=== PATIENT | female | born 1990 | race Two or more races ===

== ENCOUNTER → 2016-10-23 | Outpatient (REF) | payer OTHER | LOC: M SFHCLERA 13:02 | PROVIDERS: ATTEND Nurse Practitioner Family | DX: R50.9 Fever, unspecified (principal); R30.0 Dysuria ==

== ENCOUNTER → 2017-06-15 | Outpatient (CLI) | payer OTHER ==
[2017-06-18 00:07] LABS: MUMPS VIRUS IgM ANTIBODY <0.80 AU (0.00-0.79)
== END ==
LOC: M LAB 11:40
PROVIDERS: ATTEND Physician Assistant Medical
DX: Z23 Encounter for immunization (principal)

== ENCOUNTER 2017-11-08 19:47 | Emergency (ER) | payer OTHER ==
[2017-11-08] MEDS: NS 1,000 ML IV (20:27)
[2017-11-08] MEDS: ONDANSETRON 4MG/2ML VIAL (J2405) IV (20:27)
[2017-11-08 20:40] LABS: BASO % 0.1 % (0.0-1.0); EOS # 0.1 10^3/uL (0.0-0.50); EOS % 1.2 % (0.0-3.0); HEMATOCRIT 38.4 % (36.0-47.0); HEMOGLOBIN 13.1 g/dl (12.0-15.5); IMMATURE GRANULOCYTE % 0.4 % (0-3.0); LYMPH # 0.7 10^3/uL (1.5-6.5); LYMPH % 8.8 % (24.0-44.0); MEAN CORPUSCULAR HEMOGLOBIN 30.6 pg (27.0-33.0); MEAN CORPUSCULAR HGB CONC 34.1 g/dl (32.0-36.5); MEAN CORPUSCULAR VOLUME 89.7 fl (80.0-96.0); MONO # 0.7 10^3/uL (0.0-0.8); MONO % 8.6 % (0.0-5.0); NEUTROPHILS # 6.6 10^3/uL (1.8-7.7); NEUTROPHILS % 80.9 % (36.0-66.0); PLATELET COUNT, AUTOMATED 149 10^3/uL (150-450); RED BLOOD COUNT 4.28 10^6/uL (4.00-5.40); WHITE BLOOD COUNT 8.1 10^3/uL (4.0-10.0)
[2017-11-08 21:02] LABS: ALBUMIN 3.8 GM/DL (3.2-5.2); ALBUMIN/GLOBULIN RATIO 1.27 (1.00-1.93); ALKALINE PHOSPHATASE 46 U/L (45-117); ALT/SGPT 14 U/L (12-78); ANION GAP 8 MEQ/L (8-16); AST/SGOT 16 U/L (7-37); BILIRUBIN,DIRECT 0.2 MG/DL (0.0-0.2); BILIRUBIN,TOTAL 0.5 MG/DL (0.2-1.0); BLOOD UREA NITROGEN 11 MG/DL (7-18); CALCIUM LEVEL 8.6 MG/DL (8.5-10.1); CARBON DIOXIDE LEVEL 24 MEQ/L (21-32); CHLORIDE LEVEL 107 MEQ/L (98-107); CREATININE FOR GFR 0.79 MG/DL (0.55-1.30); GLOMERULAR FILTRATION RATE > 60.0 (>60); GLUCOSE, FASTING 117 MG/DL (70-100); LIPASE 106 U/L (73-393); POTASSIUM SERUM 3.4 MEQ/L (3.5-5.1); SODIUM LEVEL 139 MEQ/L (136-145); TOTAL PROTEIN 6.8 GM/DL (6.4-8.2)
[2017-11-08] MEDS: ONDANSETRON 4 MG ORAL DISINTEGRATING TAB (Q0162 PER 1MG) PO (21:45)
== END 2017-11-08 21:55 | disposition home or self-care (01) ==
LOC: M ED 19:47
DX: A08.4 Viral intestinal infection, unspecified (principal); Z88.2 Allergy status to sulfonamides; Z88.8 Allergy status to other drugs, medicaments and biological substances; F17.210 Nicotine dependence, cigarettes, uncomplicated
CPT/HCPCS: J2405

== ENCOUNTER 2018-05-10 16:51 | Emergency (ER) | payer OTHER | END 2018-05-10 17:54 | disposition home or self-care (01) | LOC: M ED 16:51 | DX: S09.11XA Strain of muscle and tendon of head, initial encounter (principal); X58.XXXA Exposure to other specified factors, initial encounter; Y92.9 Unspecified place or not applicable; Y93.89 Activity, other specified; Y99.9 Unspecified external cause status; Z88.1 Allergy status to other antibiotic agents | CPT/HCPCS: 99282 ==

== ENCOUNTER → 2018-07-07 | Outpatient (CLI) | payer OTHER ==
[~2018-07-07] MED LIST: IBUP-1114 PO; ZOFR4TAB14 PO
--- NOTE | 2018-07-08 03:35 | REP ---
Clinical: Acute bronchitis . Comparison: None . Technique: PA and lateral. Findings: The mediastinum and cardiac silhouette are normal. The lung samuels are clear and without acute consolidation, effusion, or pneumothorax. The skeletal structures are intact and normal. Impression: 1. No acute cardiopulmonary process. Electronically Signed by Chaz Preciado MD 07/08/2018 03:27 A
== END ==
LOC: M RAD 15:32
PROVIDERS: ATTEND Physician Assistant
DX: J20.9 Acute bronchitis, unspecified (principal)

== ENCOUNTER → 2018-12-21 | Outpatient (CLI) | payer OTHER ==
[2018-12-21 18:39] LABS: ALBUMIN 4.4 GM/DL (3.2-5.2); ALT/SGPT 21 U/L (12-78); BILIRUBIN,TOTAL 0.3 MG/DL (0.2-1.0); BLOOD UREA NITROGEN 12 MG/DL (7-18); CALCIUM LEVEL 9.6 MG/DL (8.5-10.1); CARBON DIOXIDE LEVEL 29 MEQ/L (21-32); CHLORIDE LEVEL 105 MEQ/L (98-107); CREATININE FOR GFR 0.92 MG/DL (0.55-1.30); GLOMERULAR FILTRATION RATE > 60.0 (>60); GLUCOSE, FASTING 63 MG/DL (70-100); POTASSIUM SERUM 4.3 MEQ/L (3.5-5.1); RHEUMATOID FACTOR QUANT < 10.0 IU/ML (<15.0); SODIUM LEVEL 139 MEQ/L (136-145); TOTAL PROTEIN 7.8 GM/DL (6.4-8.2)
[2018-12-21 18:47] LABS: TOTAL 25(OH) VITAMIN D 37.7 NG/ML (30.0-100.0)
[2018-12-21 18:52] LABS: BASO # 0.1 10^3/uL (0.0-0.2); BASO % 0.9 % (0.0-1.0); EOS # 0.3 10^3/uL (0.0-0.50); EOS % 3.4 % (0.0-3.0); HEMATOCRIT 41.3 % (36.0-47.0); HEMOGLOBIN 13.7 g/dl (12.0-15.5); LYMPH # 2.8 10^3/uL (1.5-6.5); LYMPH % 31.6 % (24.0-44.0); MEAN CORPUSCULAR HEMOGLOBIN 30.3 pg (27.0-33.0); MEAN CORPUSCULAR HGB CONC 33.2 g/dl (32.0-36.5); MEAN CORPUSCULAR VOLUME 91.4 fl (80.0-96.0); MONO # 0.7 10^3/uL (0.0-0.8); MONO % 7.2 % (0.0-5.0); NEUTROPHILS # 5.1 10^3/uL (1.8-7.7); NEUTROPHILS % 56.6 % (36.0-66.0); PLATELET COUNT, AUTOMATED 254 10^3/uL (150-450); RED BLOOD COUNT 4.52 10^6/uL (4.00-5.40)
[2018-12-21 19:42] LABS: ERYTHROCYTE SEDIMENTATION RATE 5 mm/hr (0-20)
[2018-12-24 00:11] LABS: ANA (HEP2) Positive (.); CYCLIC CITRULLINATED PEPTIDE 4 units (0-19); Lyme Disease IgG/IgM Antibodie <0.91 ISR (0.00-0.90); Lyme Disease IgM Ab Quantitati <0.80 index (0.00-0.79); TISSUE TRANSGLUTAMINASE IgA <2 U/mL (0-3)
== END ==
LOC: M SMT 15:38
PROVIDERS: ATTEND Physician Assistant
DX: M25.50 Pain in unspecified joint (principal)

== ENCOUNTER → 2019-01-28 | Outpatient (CLI) | payer OTHER ==
[2019-02-01 10:47] LABS: DRVV SCREEN 42.1 SEC
[2019-02-01 10:50] LABS: PTT LUPUS TYPE ANTICOAG SCREEN 1.1 (0-1.2)
[2019-02-08 00:06] LABS: ANA (HEP2) Positive (.); ANTI CENTROMERE ANTIBODY <0.2 AI (0.0-0.9); ANTI DS-DNA AB <1:10 titer (.); HLA-B27 Negative (.); SSA SJOGRENS A <0.2 AI (0.0-0.9); SSB SJOGRENS B <0.2 AI (0.0-0.9)
== END ==
LOC: M WUC 12:17
PROVIDERS: ATTEND Physician Assistant
DX: R76.0 Raised antibody titer (principal)

== ENCOUNTER 2019-06-07 07:29 | Emergency (ER) | payer OTHER ==
[~2019-06-07] VITALS: Ht 165.1 cm; Wt 65.9 kg
[2019-06-07] MEDS ORDERED: FLUO20CA19 (07:37)
[2019-06-07] MEDS ORDERED: NS 1,000 ML IV ONE (08:00)
[2019-06-07] MEDS ORDERED: ONDANSETRON 4MG/2ML VIAL (J2405) IV ONE ×2 (08:00→10:00)
[2019-06-07 08:21] LABS: BASO % 0.6 % (0.0-1.0); EOS # 0.3 10^3/uL (0.0-0.5); EOS % 4.9 % (0.0-3.0); HEMATOCRIT 39.6 % (36.0-47.0); HEMOGLOBIN 13.1 g/dl (12.0-15.5); LYMPH # 2.4 10^3/uL (1.5-5.0); LYMPH % 38.3 % (24.0-44.0); MEAN CORPUSCULAR HEMOGLOBIN 30.8 pg (27.0-33.0); MEAN CORPUSCULAR HGB CONC 33.1 g/dl (32.0-36.5); MEAN CORPUSCULAR VOLUME 93.2 fl (80.0-96.0); MONO # 0.7 10^3/uL (0.0-0.8); MONO % 11.8 % (0.0-5.0); NEUTROPHILS # 2.7 10^3/uL (1.5-8.5); NEUTROPHILS % 44.2 % (36.0-66.0); PLATELET COUNT, AUTOMATED 190 10^3/uL (150-450); RED BLOOD COUNT 4.25 10^6/uL (4.00-5.40); WHITE BLOOD COUNT 6.2 10^3/uL (4.0-10.0)
[2019-06-07] MEDS ORDERED: KETOROLAC 30 MG/ML VIAL (J1885) IV ONE (08:30)
[2019-06-07 08:37] LABS: ALT/SGPT 65 U/L (12-78); BILIRUBIN,DIRECT < 0.1 MG/DL (0.0-0.2); BILIRUBIN,TOTAL 0.2 MG/DL (0.2-1.0); LIPASE 159 U/L (73-393)
--- NOTE | 2019-06-07 09:49 | REP ---
CT ABDOMEN AND PELVIS WITHOUT IV OR ORAL CONTRAST: HISTORY: Right flank pain. History of kidney stones. No comparison imaging. FINDINGS: Digital preliminary market investigator radiograph demonstrates an unremarkable bowel gas pattern. The lung bases are clear. The liver and the spleen are normal in size homogeneous in texture. No adrenal abnormality is observed. There is diffuse thickening of the pancreas, likely normal anatomic variant. The gland does not appear to be thickened on coronal and sagittal multiplanar re-formation imaging. No focal pancreatic lesion is seen. Peripancreatic soft tissues do not appear to be edematous. No abnormality is noted in the gallbladder. There is a tiny intrarenal calculus in the left mid kidney collecting system, 2 mm. There is another similar sized calcification adjacent to this in the left mid kidney on sagittal MPR images. No intrarenal calculus is noted on the right. No ureteral calculus is seen. No hydronephrosis is noted. In the pelvis, the uterus is tipped to the right and there is a cystic lesion in the right ovary. Right ovarian cystic lesion measures 6.0 cm right to left x 5.2 cm anterior to posterior x 6.0 cm craniocaudal. The left ovary has a normal appearance. No free fluid is noted in the pelvis or elsewhere in the peritoneum. A normal appendix is seen in the right lower quadrant. Small and large bowel loops are unremarkable. No abdominal wall defect is seen. IMPRESSION: 1. There are two tiny intrarenal calculi in the left kidney collecting system. No hydronephrosis or ureteral stone is seen on either side. 2. There is a 6 cm cystic lesion affecting the right ovary. 3. Normal appendix. No other acute intra-abdominal abnormality. Electronically Signed by Amrik Garcia MD 06/07/2019 05:13 P
[2019-06-07] MEDS ORDERED: MORPHINE 4 MG/ML 1ML VIAL/SYRINGE (J2270) IV ONE ×2 (10:00→11:45)
--- NOTE | 2019-06-07 11:42 | REP ---
PELVIC SONOGRAPHY: HISTORY: Evaluate uterus and ovaries. Right lower quadrant pain. Comparison is made with today's CT study. A cystic lesion was noted in the right ovary. FINDINGS: Transabdominal and transvaginal scanning are performed. Uterine dimensions are normal at 9.3 x 3.0 x 4.9 cm. Endometrial echo 0.8 cm thick and centrally placed. There is a 0.8 cm hyperechoic focus in the anterior uterine myometrium consistent with a small fibroid. No other focal uterine lesion is seen. Urinary bladder bello are smooth. A small quantity of cul-de-sac fluid is visible. A normal left ovary is seen measuring 3.2 x 1.7 x 2.9 cm. The right ovary is enlarged with overall dimensions of 5.9 x 5.2 x 6.5 cm. This includes a hypoechoic cyst measuring 5.6 x 4.5 x 5.9 cm. This corresponds to the CT findings. The ovary does not appear to be in an abnormal position. There is Doppler flow to both ovaries. 0.6 resistive index is observed on the right adjacent to the cyst wall and resistive index on the left is 0.7. IMPRESSION: There is a complex hypoechoic 5.9 cm cyst in the right ovary. A small quantity of cul-de-sac fluid is seen. A small uterine fibroid is noted. Normal left ovary. Doppler flow is visible bilaterally in the ovaries. This does not exclude torsion. Electronically Signed by Amrik Garcia MD 06/07/2019 05:15 P
[2019-06-07] MEDS ORDERED: ONDA4TAB6 PO (12:35)
[2019-06-07 12:52] VITALS: BP 109/67
--- NOTE | 2019-06-08 13:04 | ED PDOC ---
Post-Departure Follow-Up dr muniz and dr lema faxed formal report of pelvic us for fu Jermaine Leon MD Jun 08, 2019 13:04
== END 2019-06-07 12:55 | disposition home or self-care (01) ==
LOC: M ED 07:29
DX: N83.201 Unspecified ovarian cyst, right side (principal); D25.9 Leiomyoma of uterus, unspecified; N20.0 Calculus of kidney; F41.9 Anxiety disorder, unspecified; Z88.2 Allergy status to sulfonamides; Z88.8 Allergy status to other drugs, medicaments and biological substances
CPT/HCPCS: 74176; 76830; 76856; 80047; 80076; 81001; 83690; 84702; 85025; 87086; 93976; 96361; 96374; 96375; 96376; 99284; J1885; J2270; J2405

== ENCOUNTER 2019-07-28 06:48 | Day surgery (SDC) | payer OTHER ==
[~2019-07-28] VITALS: Ht 165.1 cm; Wt 75.3 kg
[~2019-07-28 06:48] MED LIST changes: +FLUO20CA19; +LR 1,000 ML IV ONE; +ONDA4TAB6 PO
[2019-07-28] MEDS ORDERED: SUGAMMADEX SODIUM 500 MG/5 ML VIAL (BRIDION) As Ordered ONE (07:35)
[2019-07-28] MEDS ORDERED: dexameTHASONE 4 MG/ML 1ML VIAL (J1100) As Ordered ONE (07:35)
[2019-07-28] MEDS ORDERED: ONDANSETRON 4MG/2ML VIAL (J2405) As Ordered ONE ×2 (07:35→10:58)
[2019-07-28] MEDS ORDERED: KETOROLAC 60 MG/2 ML VIAL (J1885) As Ordered ONE (07:35)
[2019-07-28] MEDS ORDERED: LIDOCAINE 2% INJ 100 MG/5 ML SDV (FOR ANES.) As Ordered ONE (07:35)
[2019-07-28] MEDS ORDERED: ROCURONIUM BROMIDE 50 MG/5 ML VIAL As Ordered ONE ×2 (07:35→09:16)
[2019-07-28] MEDS ORDERED: propofoL 200 MG/20 ML VIAL As Ordered ONE (07:35)
[2019-07-28] MEDS ORDERED: ACETAMINOPHEN 1000MG 100ML IV BTL (OFIRMEV) (J0131 PER 10MG) As Ordered ONE (07:36)
[2019-07-28] MEDS ORDERED: fentaNYL 250 MCG/5 ML INJECTION (J3010) As Ordered ONE (07:40)
[2019-07-28] MEDS ORDERED: MIDAZOLAM INJ 2 MG/2 ML VIAL (J2250) As Ordered ONE (07:41)
[2019-07-28] MEDS ORDERED: SCOPOLAMINE 1MG TRANSDERMAL PATCH As Ordered ONE (07:59)
[2019-07-28] MEDS ORDERED: SCOPOLAMINE 1MG TRANSDERMAL PATCH TOP ONE (08:00)
[2019-07-28] MEDS ORDERED: LACRILUBE (AKWA TEARS) OPHTH OINT 3.5 GM As Ordered ONE (08:37)
[2019-07-28] MEDS ORDERED: GLYCOPYRROLATE INJ 0.2 MG/ML 2 ML VIAL As Ordered ONE (09:07)
[2019-07-28] MEDS ORDERED: fentaNYL 100 MCG/2 ML INJECTION (J3010) As Ordered ONE (10:01)
[2019-07-28] MEDS ORDERED: HYDROmorphone HCL 2 MG/ML 1ML VIAL (J1170) As Ordered ONE (10:35)
[2019-07-28] MEDS ORDERED: PERCOCET 5MG/325MG TAB As Ordered ONE ×2 (10:58→11:30)
[2019-07-28] MEDS ORDERED: IBUPROFEN 600 MG TAB PO PRN (11:00)
[2019-07-28] MEDS ORDERED: NORCO, ANEXSIA 5/325MG TABLET (HYDROcodone/ACETAMINOPHEN) PO PRN (11:00)
[2019-07-28] MEDS ORDERED: LR 1,000 ML IV SCH ×2 (11:00→11:15)
[2019-07-28] MEDS: PERCOCET 5MG/325MG TAB PO PRN ×2 (11:00→11:32)
[2019-07-28] MEDS ORDERED: fentaNYL 100 MCG/2 ML INJECTION (J3010) IV PRN (11:15)
[2019-07-28] MEDS ORDERED: ONDANSETRON 4MG/2ML VIAL (J2405) IV PRN (11:15)
[2019-07-28] MEDS ORDERED: METOCLOPRAMIDE INJ 10MG/2ML VIAL (J2765) IV PRN (11:15)
[2019-07-28] MEDS ORDERED: KETOROLAC 30 MG/ML VIAL (J1885) IV PRN (11:15)
[2019-07-28 12:30] VITALS: BP 113/63
--- NOTE | 2019-07-28 19:22 | RO ---
DATE OF PROCEDURE: 07/28/2019 PREOPERATIVE DIAGNOSIS: Pain, right ovarian cyst. POSTOPERATIVE DIAGNOSIS: Right corpus luteum cyst, adhesions and extensive endometriosis. PROCEDURE: Robotic resection of endometriotic implants, lysis of adhesions and biopsy of right ovarian cyst. SURGEON: Mady Mendez MD HEAD TRIMMER: Alyssa Kaiser ANESTHESIA: General endotracheal anesthesia. SPECIMENS: The biopsy of the cyst and multiple endometriotic implants. DESCRIPTION OF PROCEDURE: Baljeet was brought to the operating room where sufficient general endotracheal anesthesia was induced, and she was prepped, draped and positioned in the usual sterile fashion. With the uterine manipulator placed, the bladder emptied, and attention turned to the abdomen where a transverse semilunar incision was made below the umbilicus. Sharp and blunt dissection continued through the subcutaneous tissues to the level of the rectus fascia, which was secured with #0 Vicryl retention sutures, transversely incised, and the peritoneum entered under direct visualization. The Carmine cannula was placed and CO2 insufflation was then begun. After adequate CO2 insufflation, the peritoneal surfaces were visualized. There was no ascites, exudate, nor excrescence other than multiple endometriotic implants and some minor adhesions of the descending colon. Two left-sided, one right-sided port placed for the robot, and the patient was placed in Trendelenburg and docked the robot, and then the work from the robot began. Working from the robotic console, I took down the adhesions of the descending colon. We did not need to use cautery for this. We then approached the endometriotic implants, which were in the peritoneum of the pelvis and the lower abdomen, and over the round ligament on the left side and over the cul-de-sac bilaterally, and extensively over the surface of the left ureter where there was extensive scarring of the peritoneal surface. By and large what we did was use the curved scissors and just with dissection and no cautery at all, we removed multiple endometriotic implants and sent them for pathologic evaluation. Because we working cold, we were able to get quite close to the colon and the cul-de-sac and close to the ureter on the left, but, of course, stayed away from working right over top of it, especially since those tissues were quite scarred, and I suspect there had been other areas of endometriotic implants. There were also some implants in the anterior cul-de-sac, which were removed and some annular scarring consistent with previous implants that since resolved. We also evaluated the right ovary, which as can be seen in the operative reports, had a normal external appearance, but we were able with palpation to confirm the suspicion of an inferior cyst. This was opened and had a very stereotypical appearance of a corpus luteum, so we went ahead and biopsied that but did not bother to shell out all the cyst wall. We just cauterized the ovarian edge to control any bleeding and left the ovary alone in this patient who wants her fertility protected. It is of relevant note that the ovarian themselves there is a little endometriosis on the left but not really any endometriosis on the right ovarian fossa. There was a little bit of inferior endometriotic scarring, but the ovarian fossa are overall generally clear, and the tubes themselves were clear of endometriosis. So, we went ahead and resected these lesions and then irrigated and visualized there was not really any significant bleeding, and we went ahead and ended the case. Removing the instruments, closing the four ports, the deep wound at the umbilicus was closed with #0 Vicryl retention sutures, and the skin was closed with #3-0 Vicryl in a subcuticular stitch at all four sites. Of course, the uterine instruments were removed as well. Dry sterile dressings were applied and the procedure was ended. Estimated blood loss for the procedure was about 25 mL. Fluid replacement was crystalloid. Complications: None. Condition and Disposition: Baljeet tolerated the procedure well and was recovering in the recovery room in good condition.
== END 2019-07-28 12:45 | disposition home or self-care (01) ==
LOC: M SDC 06:48
PROVIDERS: ATTEND Obstetrics & Gynecology
DX: N80.9 Endometriosis, unspecified (principal); N83.11 Corpus luteum cyst of right ovary; K66.0 Peritoneal adhesions (postprocedural) (postinfection); M71.551 Other bursitis, not elsewhere classified, right hip; F41.9 Anxiety disorder, unspecified; F33.9 Major depressive disorder, recurrent, unspecified; Z79.899 Other long term (current) drug therapy; Z87.891 Personal history of nicotine dependence; Z88.2 Allergy status to sulfonamides
CPT/HCPCS: 58662; 81025; 88305; J0131; J1100; J1170; J1885; J2250; J2405; J3010

== ENCOUNTER → 2020-03-21 | Outpatient (CLI) | payer OTHER ==
[~2020-03-21] MED LIST changes: -FLUO20CA19; +FLUO20CA22; -LR 1,000 ML IV ONE
--- NOTE | 2020-03-27 10:43 | REP ---
CHEST X-RAY CLINICAL: Cough and shortness of breath, asthma. TECHNIQUE: PA and lateral. COMPARISON: 07/07/2019 FINDINGS: Mediastinum and cardiac silhouette normal. Lung samuels clear. No consolidation, effusion, or pneumothorax. Skeletal structures intact. IMPRESSION: Normal chest x-ray. No acute cardiopulmonary process or focal consolidation. MTDD
== END ==
LOC: M WUC 11:43
PROVIDERS: ATTEND Physician Assistant
DX: J45.30 Mild persistent asthma, uncomplicated (principal)

== ENCOUNTER → 2020-07-08 | Outpatient (CLI) | payer OTHER ==
[2020-07-08 10:24] LABS: BASO # 0.1 10^3/uL (0.0-0.2); BASO % 0.5 % (0.0-1.0); EOS # 0.2 10^3/uL (0.0-0.5); EOS % 1.5 % (0.0-3.0); HEMATOCRIT 41.3 % (36.0-47.0); HEMOGLOBIN 13.6 g/dl (12.0-15.5); LYMPH # 5.6 10^3/uL (1.5-5.0); LYMPH % 38.1 % (24.0-44.0); MEAN CORPUSCULAR HEMOGLOBIN 30.2 pg (27.0-33.0); MEAN CORPUSCULAR HGB CONC 32.9 g/dl (32.0-36.5); MEAN CORPUSCULAR VOLUME 91.6 fl (80.0-96.0); MONO # 0.9 10^3/uL (0.0-0.8); NEUTROPHILS # 7.8 10^3/uL (1.5-8.5); NEUTROPHILS % 53.2 % (36.0-66.0); PLATELET COUNT, AUTOMATED 309 10^3/uL (150-450); RED BLOOD COUNT 4.51 10^6/uL (4.00-5.40); WHITE BLOOD COUNT 14.7 10^3/uL (4.0-10.0)
[2020-07-08 10:49] LABS: ALT/SGPT 15 U/L (12-78); BILIRUBIN,TOTAL 0.3 MG/DL (0.2-1.0); BLOOD UREA NITROGEN 12 MG/DL (7-18); CALCIUM LEVEL 9.2 MG/DL (8.5-10.1); CARBON DIOXIDE LEVEL 28 MEQ/L (21-32); CHLORIDE LEVEL 101 MEQ/L (98-107); CREATININE FOR GFR 0.85 MG/DL (0.55-1.30); GLOMERULAR FILTRATION RATE > 60.0 (>60); GLUCOSE, FASTING 74 MG/DL (70-100); POTASSIUM SERUM 3.8 MEQ/L (3.5-5.1); RHEUMATOID FACTOR QUANT < 10.0 IU/ML (<15.0); SODIUM LEVEL 136 MEQ/L (136-145); TOTAL PROTEIN 7.1 GM/DL (6.4-8.2)
[2020-07-08 10:53] LABS: ERYTHROCYTE SEDIMENTATION RATE 6 mm/hr (0-20)
[2020-07-09 13:37] LABS: FOLATE 5.7 NG/ML; VITAMIN B12 LEVEL 450 PG/ML
== END ==
LOC: M LAB 08:48
PROVIDERS: ATTEND Physician Assistant
DX: R76.0 Raised antibody titer (principal)

== ENCOUNTER → 2020-08-15 | Outpatient (REF) | payer OTHER | LOC: M LAB REF 17:40 | PROVIDERS: ATTEND Physician Assistant | DX: J06.9 Acute upper respiratory infection, unspecified (principal) ==

== ENCOUNTER → 2021-04-26 | Outpatient (CLI) | payer OTHER ==
[2021-04-26 13:30] LABS: HEMATOCRIT 33.4 % (36.0-47.0); HEMOGLOBIN 11.4 g/dl (12.0-15.5); MEAN CORPUSCULAR HEMOGLOBIN 29.8 pg (27.0-33.0); MEAN CORPUSCULAR HGB CONC 34.1 g/dl (32.0-36.5); MEAN CORPUSCULAR VOLUME 87.4 fl (80.0-96.0); PLATELET COUNT, AUTOMATED 224 10^3/uL (150-450); RED BLOOD COUNT 3.82 10^6/uL (4.00-5.40); WHITE BLOOD COUNT 12.5 10^3/uL (4.0-10.0)
[2021-04-26 15:06] LABS: GC DNA AMPLIFICATION NEGATIVE (NEGATIVE)
[2021-04-26 15:09] LABS: HEPATITIS C VIRUS ABY INDEX < 0.0 INDEX (<0.8); HIV 1&2 SCREEN CENTAUR NEGATIVE (NEGATIVE)
== END ==
LOC: M PLALAB 10:33
PROVIDERS: ATTEND Specialist
DX: Z34.81 Encounter for supervision of other normal pregnancy, first trimester (principal)

== ENCOUNTER → 2021-06-07 | Outpatient (CLI) | payer OTHER ==
--- NOTE | 2021-06-09 17:56 | REP ---
INDICATION: ANATOMY COMPARISON: None. TECHNIQUE: Transabdominal obstetrical ultrasound with color Doppler evaluation. FINDINGS: Examination demonstrates a single live intrauterine in transverse presentation. motion is identified by technologist. Placenta is noted anterior and grade 1 without evidence for placenta previa or abruption. Amniotic fluid volume is normal. Cervix measures 4.3 cm in length and appears closed.. Selected gestational age: 18 weeks 2 days with JONO 11/06/2021. Gestational age by current measurements 18 weeks 3 days with JONO 11/05/2021. FHR equals 149 beats per minute. BPD: 3.9 cm; 17 weeks 5 days; 30% HC: 15.6 cm; 18 weeks 4 days; 58% AC: 14.0 cm; 19 weeks 3 days; 74% FL: 2.9 cm; 18 weeks 6 days; 63% HL: 2.7 cm; 18 weeks 5 days; 57% HC/AC: 1.12 Estimated weight 269 grams (86thpercentile). Anatomical assessment demonstrates normal structures including cranium, choroid plexus, cavum, cerebellum/posterior fossa, facial features, lungs, cardiac outflow tracts, diaphragm, stomach, cord insertion/three-vessel cord, kidneys/bladder, spine, and extremities. Limited evaluation of the facial profile and heart due to positioning. IMPRESSION: 1. Single live intrauterine in transverse lie demonstrating appropriate estimated weight. 2. Limited evaluation of the facial profile and heart due to positioning may warrant re-evaluation and follow-up. Remainder of the anatomical assessment is complete and normal. <Electronically signed by Chaz Preciado > 06/09/21 2210
== END ==
LOC: M WHC 07:53
PROVIDERS: ATTEND Advanced Practice Midwife
DX: Z34.92 Encounter for supervision of normal pregnancy, unspecified, second trimester (principal); Z3A.18 18 weeks gestation of pregnancy

== ENCOUNTER → 2023-05-11 | Outpatient (CLI) | payer OTHER ==
[2023-05-11 13:30] LABS: BASO # 0.1 10^3/uL (0.0-0.2); BASO % 0.6 % (0.0-1.0); EOS # 0.3 10^3/uL (0.0-0.5); EOS % 3.2 % (0.0-3.0); HEMATOCRIT 38.8 % (36.0-47.0); HEMOGLOBIN 12.9 g/dl (12.0-15.5); LYMPH # 2.3 10^3/uL (1.5-5.0); LYMPH % 28.2 % (24.0-44.0); MEAN CORPUSCULAR HEMOGLOBIN 30.2 pg (27.0-33.0); MEAN CORPUSCULAR HGB CONC 33.2 g/dl (32.0-36.5); MEAN CORPUSCULAR VOLUME 90.9 fl (80.0-96.0); MONO # 0.5 10^3/uL (0.0-0.8); MONO % 6.2 % (2.0-8.0); NEUTROPHILS % 61.6 % (36.0-66.0); PLATELET COUNT, AUTOMATED 251 10^3/uL (150-450); RED BLOOD COUNT 4.27 10^6/uL (4.00-5.40); WHITE BLOOD COUNT 8.1 10^3/uL (4.0-10.0)
[2023-05-11 13:40] LABS: ERYTHROCYTE SEDIMENTATION RATE 6 mm/hr (0-20)
[2023-05-11 13:49] LABS: C REACTIVE PROTEIN QUANTITATIV < 0.40 MG/DL (<1.0)
[2023-05-11 13:50] LABS: RHEUMATOID FACTOR QUANT < 3.5 IU/ML (<14)
[2023-05-11 13:54] LABS: ALBUMIN 4.2 G/DL (3.2-5.2); ALKALINE PHOSPHATASE 53 U/L (46-116); ALT/SGPT 21 U/L (7.0-40); AST/SGOT 17 U/L (<34); BILIRUBIN,TOTAL 0.3 MG/DL (0.3-1.2); BLOOD UREA NITROGEN 13 MG/DL (9-23); CARBON DIOXIDE LEVEL 28 MMOL/L (20-31); CHLORIDE LEVEL 106 MMOL/L (98-107); CHOLESTEROL LEVEL 157 MG/DL (<200); CHOLESTEROL RISK RATIO 2.88 (<5); CREATININE FOR GFR 0.65 MG/DL (0.55-1.30); FOLATE 18.1 NG/ML (>5.4); FREE T4 0.96 NG/DL (0.89-1.76); GLOMERULAR FILTRATION RATE > 60.0 (>60); GLUCOSE, FASTING 88 MG/DL (60-100); HDL CHOLESTEROL 54.4 MG/DL (>40); LDL CHOLESTEROL 86.2 MG/DL (<100); NON-HDL-C 102.6 MG/DL; POTASSIUM SERUM 4.1 MMOL/L (3.5-5.1); SODIUM LEVEL 138 MMOL/L (136-145); THYROID STIMULATING HORMONE 0.859 uIU/ML (0.55-4.78); TOTAL 25(OH) VITAMIN D 24.2 NG/ML (20.0-100.0); TOTAL PROTEIN 6.8 G/DL (5.7-8.2); TRIGLYCERIDES LEVEL 82 MG/DL (<150); VITAMIN B12 LEVEL 483 PG/ML (211-911)
== END ==
LOC: M PLALAB 08:59
PROVIDERS: ATTEND Physician Assistant
DX: L40.50 Arthropathic psoriasis, unspecified (principal)

== ENCOUNTER → 2023-05-13 | Outpatient (CLI) | payer OTHER | LOC: M WHC 12:24 | PROVIDERS: ATTEND Physician Assistant | DX: Z12.31 Encounter for screening mammogram for malignant neoplasm of breast (principal) ==

== ENCOUNTER → 2023-10-12 | Outpatient (REF) | payer OTHER | LOC: M LAB REF 16:54 | PROVIDERS: ATTEND Family Medicine | DX: J02.9 Acute pharyngitis, unspecified (principal) ==

== ENCOUNTER → 2024-01-07 | Outpatient (CLI) | payer OTHER ==
[~2024-01-07] MED LIST changes: +FLUO-365; -FLUO20CA22; +ONDA-282 PO; -ONDA4TAB6 PO
== END ==
LOC: M PLALAB 08:51
PROVIDERS: ATTEND Physician Assistant
DX: T78.49XA Other allergy, initial encounter (principal)

== ENCOUNTER → 2024-05-18 | Outpatient (REF) | payer OTHER | LOC: M LAB REF 17:23 | PROVIDERS: ATTEND Physician Assistant | DX: N39.0 Urinary tract infection, site not specified (principal) ==

== ENCOUNTER → 2024-08-05 | Outpatient (REF) | LOC: M EMP 07:53 | PROVIDERS: ATTEND Family Medicine | DX: Z11.52 Encounter for screening for COVID-19 (principal) ==

== ENCOUNTER → 2024-08-05 | Outpatient (CLI) | payer OTHER | LOC: M WUC 10:41 | PROVIDERS: ATTEND Physician Assistant | DX: R05.9 Cough, unspecified (principal); R06.02 Shortness of breath ==

== ENCOUNTER → 2024-11-16 | Outpatient (REF) | payer OTHER | LOC: M LAB REF 16:59 | PROVIDERS: ATTEND Nurse Practitioner Adult Health | DX: R50.9 Fever, unspecified (principal) ==

== ENCOUNTER → 2025-02-13 | Outpatient (CLI) | payer OTHER ==
[2025-02-13 14:11] LABS: PLATELET COUNT, AUTOMATED 294 10^3/uL (150-450)
== END ==
LOC: M PLALAB 09:55
PROVIDERS: ATTEND Obstetrics & Gynecology
DX: N93.9 Abnormal uterine and vaginal bleeding, unspecified (principal)

== ENCOUNTER → 2025-03-06 | Outpatient (CLI) | payer OTHER | LOC: M RAD 11:37 | PROVIDERS: ATTEND Obstetrics & Gynecology | DX: N93.9 Abnormal uterine and vaginal bleeding, unspecified (principal) ==

== ENCOUNTER 2025-06-07 06:14 | Day surgery (SDC) | payer OTHER ==
[~2025-06-07] VITALS: Ht 165.1 cm; Wt 64.0 kg
[~2025-06-07 06:14] MED LIST changes: +ALPR0.25 PO; +AMPH1CAP4 PO; +DULO1CAP5 PO; +GABA-1171 PO; +OMEP40CA4 PO
[2025-06-07] MEDS ORDERED: LR 1,000 ML IV SCH ×3 (06:25→12:30)
[2025-06-07] MEDS ORDERED: LIDOCAINE 1% SDV 5 ML VIAL SC PRN (06:25)
[2025-06-07 06:52] LABS: PLATELET COUNT, AUTOMATED 287 10^3/uL (150-450)
[2025-06-07] MEDS ORDERED: MIDAZOLAM INJ 2 MG/2 ML VIAL As Ordered ONE (07:16)
[2025-06-07] MEDS ORDERED: HYDROmorphone HCL 2 MG/ML 1 ML VIAL As Ordered ONE (07:16)
[2025-06-07] MEDS ORDERED: LIDOCAINE 2% 100 MG/5 ML SDV (FOR ANES.) As Ordered ONE (07:17)
[2025-06-07] MEDS ORDERED: SUGAMMADEX SODIUM 200 MG/2 ML VIAL As Ordered ONE (07:17)
[2025-06-07] MEDS ORDERED: ROCURONIUM BROMIDE 50MG/5ML VIAL As Ordered ONE (07:17)
[2025-06-07] MEDS ORDERED: dexAMETHasone 4 MG/ML 1 ML VIAL As Ordered ONE (07:18)
[2025-06-07] MEDS ORDERED: ONDANSETRON 4MG/2ML VIAL As Ordered ONE (07:18)
[2025-06-07] MEDS ORDERED: KETOROLAC 30 MG/ML 1 ML VIAL As Ordered ONE (07:18)
[2025-06-07] MEDS ORDERED: ACETAMINOPHEN 1000MG/100ML IV BAG As Ordered ONE (07:23)
[2025-06-07] MEDS: ceFAZolin SOD 2 GM IV ONCE IV ONE (07:46)
[2025-06-07] MEDS: METHYLENE BLUE 0.5% (5 MG/ML) 10 ML AMP As Ordered ONE (08:34)
[2025-06-07] MEDS ORDERED: IBUP1TAB7 PO (09:25)
[2025-06-07] MEDS ORDERED: COLA100C5 PO (09:26)
[2025-06-07] MEDS ORDERED: ONDA-282 PO (09:26)
[2025-06-07] MEDS ORDERED: PERC5TAB12 PO (09:27)
[2025-06-07] MEDS: ONDANSETRON 4MG/2ML VIAL IV PRN (09:57)
[2025-06-07] MEDS: HYDROMORPHONE HCL 0.5 MG/0.5 ML SYRINGE IV PRN (09:57)
[2025-06-07 11:40] VITALS: BP 132/75; TEMP 97.3; O2SAT 98
[2025-06-07] MEDS ORDERED: KETOROLAC 30 MG/ML 1 ML VIAL IV PRN (12:10)
[2025-06-07] MEDS ORDERED: IBUPROFEN 800 MG TAB PO PRN (12:15)
[2025-06-07] MEDS ORDERED: PERCOCET 5MG/325MG TAB PO PRN (12:15)
[2025-06-07] MEDS ORDERED: MORPHINE 4 MG/ML 1 ML VIAL IV PRN (12:20)
[2025-06-07] MEDS ORDERED: diphenhydrAMINE 50 MG/ML VIAL IV PRN (12:20)
[2025-06-07] MEDS ORDERED: ONDANSETRON 4MG/2ML VIAL IV PRN (12:20)
[2025-06-12] MEDS ORDERED: IBUPROFEN 800 MG TAB PO PRN (18:00)
== END 2025-06-07 12:20 | disposition home or self-care (01) ==
LOC: M SDC 06:14
PROVIDERS: ATTEND Obstetrics & Gynecology
DX: N93.9 Abnormal uterine and vaginal bleeding, unspecified (principal); N80.30 Endometriosis of pelvic peritoneum, unspecified; R10.20 Pelvic and perineal pain unspecified side; K21.9 Gastro-esophageal reflux disease without esophagitis; F41.9 Anxiety disorder, unspecified; F32.A Depression, unspecified; Z79.899 Other long term (current) drug therapy; Z88.8 Allergy status to other drugs, medicaments and biological substances; Z88.2 Allergy status to sulfonamides; F90.9 Attention-deficit hyperactivity disorder, unspecified type
CPT/HCPCS: 36415; 58571; 81025; 85027; 86850; 86900; 86901; 88307; J0131; J0665; J0688; J1100; J1171; J1885; J2250; J2405; J2765; J3010; J3490; S2900